=== PATIENT | female | born 1975 | race American Indian/Alaskan Native ===

== ENCOUNTER 2016-12-23 10:36 | Outpatient (CLI) | payer MEDICAID ==
[2016-12-23 11:01] LABS: Eosinophils % (Auto) 1.5 % (0.0-4.3); Mean Corpuscular HGB Conc 29 % (30-34); Platelet Count 386 K/mm3 (140-440)
[2016-12-23 11:08] LABS: Hematocrit 30.5 % (30.3-42.9); Mean Corpuscular Hemoglobin 18 pg (28-32); Mean Corpuscular Volume 61 fl (79-97); Red Cell Distribution Width 24.5 % (13.2-15.2)
[2016-12-23 11:26] LABS: Alanine Aminotransferase 10 units/L (7-56); Albumin 3.5 g/dL (3.9-5); Alkaline Phosphatase 81 units/L (35-129); Anion Gap 17 mmol/L; BUN/Creatinine Ratio 16.66; Bilirubin,Total < 0.2 mg/dL (0.1-1.2); Blood Urea Nitrogen 10 mg/dL (7-17); Calcium 8.4 mg/dL (8.4-10.2); Carbon Dioxide 23 mmol/L (22-30); Cholesterol 209 mg/dL (50-199); Glucose 110 mg/dL (65-100); HDL Cholesterol 69 mg/dL (40-59); LDL Cholesterol,Direct 125 mg/dL (50-130); Potassium 4.2 mmol/L (3.6-5.0); Sodium 139 mmol/L (137-145); Triglycerides 77 mg/dL (2-149)
[2016-12-23 11:59] LABS: Basophils % (Manual) 0 % (0.0-1.8); Blastocytes % (Manual) 0 %; Eosinophils % (Manual) 0 % (0.0-4.3); Hypochromasia 3+
[2016-12-23 12:00] LABS: Anisocytosis 2+; Microcytosis 2+; Ovalocytes Few; Polychromasia Few
[2016-12-23 12:01] LABS: Diff Status Complete
== END 2016-12-23 10:37 | disposition home or self-care (01) ==
LOC: LAB 10:36
PROVIDERS: ATTEND Psychiatry & Neurology Psychiatry
DX: F31.4 Bipolar disorder, current episode depressed, severe, without psychotic features (principal)
CPT/HCPCS: 36415; 80053; 80061; 83036; 84146; 84439; 84443; 85007; 85025